=== PATIENT | female | born 1985 | race Caucasian/White ===

== ENCOUNTER 2016-09-17 14:16 | Emergency (ER) | payer MEDICAID ==
[~2016-09-17] VITALS: Ht 167.6 cm; Wt 104.3 kg
[~2016-09-17 14:16] MED LIST: BACTRIM DS 8001 TA1 PO; BACTRIM DS 8001 TAB PO; FLEXERIL10 MG PO; FLINTSTONES1 CTB PO; GABAPENTIN 600600 MG PO; HYDROCODONE1 TABLE1 PO; IBU800 M1 PO; MOTRIN 400MG.400 MG PO; PERCOCET 5/3251 EACH PO; PREDNISONE 20MG20 MG PO; XANAX 1MG TABLET1 MG PO; ZYRTEC10 M2 PO
[2016-09-17] MEDS ORDERED: EXPECTORANT200 MG PO (16:13)
--- NOTE | 2016-09-17 16:14 | Urgent Treatment Center Report ---
History of Present Issue Date/Time Seen by Provider 09/17/16 7101 Visit Reason Pt arrived:Walked Presenting Problem:COUGH, SORE THROAT, FEVER Location if Accident: Onset of symptoms date/time:/ or onset unknown for:MEDICAL HX UNKNOWN Have you (or family members/close friends) recently traveled outside the [place]? N If Yes, where/when: Have you had exposure to infectious disease within the past month? TB? Other? Specify: States that she has been coughing and it has made her throat sore and she thinks she may have had a fever ALLERGIES Coded Allergies: MDX - Erythromycin (ERYTHROMYCIN) (SEVERE ABD CRAMPS 04/23/14) Home Medications Reported Medications Ibuprofen (Ibu) 800 MG PO NEEDED Gabapentin (Gabapentin 600MG) 800 MG PO QID History Medical History General CAD? No Angina: No NC: No Hypertension? No Hyperlipidemia? No CHF? No DVT? No PE? No COPD? No Asthma? No Anemia? No GERD? No Gastric ulcers? No GI Bleed? No Hernia? No Thyroid Problems? No Hypothyroidism? No CVA? No Seizures? No Diabetes? No Renal Insuffiency? No UTI? No Stones? No BPH? No GB Disease: Yes Nephritic Syndrome? No Asplenia? No Hepatitis? No Sickle Cell Disease? No Arthritis? No Migraines? No Cataracts? No Glaucoma? No MRSA? No HIV? No TB? No Anxiety? No Depression? No Cancer? No More? 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 Family History Family HX Diabetes Yes CAD Yes Hypertension Yes Hyperlipidemia Yes Cancer Yes TB No Social History Smoking Hx Smoker: Current Every Day Smoker Tobacco: Yes Type Cigarettes Packs/day < 1 Pack Are you/the child exposed to second-hand smoke: Yes Alcohol Alcohol: No Review of Systems All Other Systems Reviewed and Negative Physical Exam Vital Signs Vital Signs Date Time Temp Pulse Resp B/P Pulse O2 O2 Flow FiO2 Ox Delivery Rate 09/17 1530 98.0 90 18 146/84 95 09/17 1525 98.0 90 18 146/84 95 General Appearance normal appearance, no apparent distress Ear, Nose, Throat throat mildly red, irritated Respiratory Status Yes: trachea midline, chest symmetrical, non tender chest. No: respiratory distress. Cardiovascular normal exam, no peripheral edema, no gallop, no JVD, no murmur Comment congested Neurologic alert Medical Decision Making LABS/Meds/Orders Pt receiving controlled substance in ED? No Results/Orders Laboratory Tests 09/17/16 1531: Group A Strep Screen NOT DETECTED Orders Procedure Date/time Status [facility] STREP SCREEN 09/17 1531 Complete Departure Departure Time of Disposition 1609 Disposition DC Home or Self Care(routine) Clinical Impression Primary Impression: Viral illness Condition STABLE Referrals CLARA KEARNS APRN (Family) Patient Instructions DI for Cough -- Adult Additional Instructions Drink plenty of fluids Warm salt water gargles for throat irritation Follow up family doctor Discharge Counseling Counseled pt/family regarding diagnosis, test results, medications/RX, home care Prescriptions Current Visit Scripts Guaifenesin (Expectorant) 200 MG PO Q4HP PRN congestion #24 TAB at 1618
--- NOTE | 2016-09-17 16:14 | Urgent Treatment Center Report ---
History of Present Issue Date/Time Seen by Provider 09/17/16 9930 Visit Reason Pt arrived:Walked Presenting Problem:COUGH, SORE THROAT, FEVER Location if Accident: Onset of symptoms date/time:/ or onset unknown for:MEDICAL HX UNKNOWN Have you (or family members/close friends) recently traveled outside the [place]? N If Yes, where/when: Have you had exposure to infectious disease within the past month? TB? Other? Specify: States that she has been coughing and it has made her throat sore and she thinks she may have had a fever ALLERGIES Coded Allergies: MDX - Erythromycin (ERYTHROMYCIN) (SEVERE ABD CRAMPS 04/23/14) Home Medications Reported Medications Ibuprofen (Ibu) 800 MG PO NEEDED Gabapentin (Gabapentin 600MG) 800 MG PO QID History Medical History General CAD? No Angina: No MS: No Hypertension? No Hyperlipidemia? No CHF? No DVT? No PE? No COPD? No Asthma? No Anemia? No GERD? No Gastric ulcers? No GI Bleed? No Hernia? No Thyroid Problems? No Hypothyroidism? No CVA? No Seizures? No Diabetes? No Renal Insuffiency? No UTI? No Stones? No BPH? No GB Disease: Yes Nephritic Syndrome? No Asplenia? No Hepatitis? No Sickle Cell Disease? No Arthritis? No Migraines? No Cataracts? No Glaucoma? No MRSA? No HIV? No TB? No Anxiety? No Depression? No Cancer? No More? 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 Family History Family HX Diabetes Yes CAD Yes Hypertension Yes Hyperlipidemia Yes Cancer Yes TB No Social History Smoking Hx Smoker: Current Every Day Smoker Tobacco: Yes Type Cigarettes Packs/day < 1 Pack Are you/the child exposed to second-hand smoke: Yes Alcohol Alcohol: No Review of Systems All Other Systems Reviewed and Negative Physical Exam Vital Signs Vital Signs Date Time Temp Pulse Resp B/P Pulse O2 O2 Flow FiO2 Ox Delivery Rate 09/17 1530 98.0 90 18 146/84 95 09/17 1525 98.0 90 18 146/84 95 General Appearance normal appearance, no apparent distress Ear, Nose, Throat throat mildly red, irritated Respiratory Status Yes: trachea midline, chest symmetrical, non tender chest. No: respiratory distress. Cardiovascular normal exam, no peripheral edema, no gallop, no JVD, no murmur Comment congested Neurologic alert Medical Decision Making LABS/Meds/Orders Pt receiving controlled substance in ED? No Results/Orders Laboratory Tests 09/17/16 1531: Group A Strep Screen NOT DETECTED Orders Procedure Date/time Status [facility] STREP SCREEN 09/17 1531 Complete Departure Departure Time of Disposition 1609 Disposition DC Home or Self Care(routine) Clinical Impression Primary Impression: Viral illness Condition STABLE Referrals CLARA KEARNS APRN (Family) Patient Instructions DI for Cough -- Adult Additional Instructions Drink plenty of fluids Warm salt water gargles for throat irritation Follow up family doctor Discharge Counseling Counseled pt/family regarding diagnosis, test results, medications/RX, home care Prescriptions Current Visit Scripts Guaifenesin (Expectorant) 200 MG PO Q4HP PRN congestion #24 TAB at 1612
[2016-09-17 16:38] VITALS: BP 146/84
== END 2016-09-17 16:38 | disposition home or self-care (01) ==
LOC: UTC 14:16
DX: B34.9 Viral infection, unspecified (principal)

== ENCOUNTER 2017-06-14 01:42 | Emergency (ER) | payer MEDICAID ==
[~2017-06-14] VITALS: Ht 167.6 cm; Wt 111.1 kg
[~2017-06-14 01:42] MED LIST changes: +EXPECTORANT200 MG PO
[2017-06-14] MEDS ORDERED: SUBOXONE 8 MG-21 FIL SL (01:59)
--- OUTSIDE RECORDS SUMMARY | 2017-06-14 02:03 | External Medical Summary Rpt | CCD ---
Demographics Preferred Language Lithuanian Marital Status Unknown Baptism Affiliation Unknown Race Unknown Ethnic Group Unknown Author Author , AMINAH BURR Address Unknown Phone Immunization Unable to retrieve immunization data due to connection failure with Immunization Registry. Please try again later.
--- OUTSIDE RECORDS SUMMARY | 2017-06-14 02:03 | External Medical Summary Rpt | CCD ---
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 DEPENDENCE, CIGARETTES, UNCOMPLICAT ED H57.12 OCULAR 11-05-2016 PAIN, LEFT EYE T15.12XA FOREIGN 11-05-2016 BODY IN CONJUNCTIVA L SAC, LEFT EYE, INITIAL ENCOUNTER Allergies, Adverse Reactions, Alerts Type Drug Allergy Adverse Reaction to Substance Substance Reaction Severity Erythromycin I-RASH Unknown Medications Na ND Rx Da Fi Fi Am Da Di Ph RX Ph St me C No te ll ll ou ys ag ar # ys at rm s nt no ma ic us Or Da si cy ia de te s n re d LA [address] 40 -2 AT 97 1- Lo ED 95 20 ng 30 13 er RI 9 NG Ac ER ti S ve IN JE CT IO N PI 11 10 0 No TO 11 -2 CI 11 1- Lo N 11 20 ng 30 13 13 er 3 UN Ac IT ti S/ ve LR 50 0M L IV MA 00 10 2 No PA 90 -2 P 41 1- Lo 32 98 20 ng 5 26 13 er MG 1 Ac TA ti BL ve ET Mo 00 10 0 No rp 40 -2 hi 91 1- Lo ne 25 20 ng 83 13 er 4M 0 G/ Ac Ml ti ve Sy ri ng e OX 00 10 0 No YC 40 -2 OD 60 1- Lo ON 55 20 ng E 26 13 er HC 2 L Ac 5 ti MG ve TA BL ET SI 63 10 2 No ME 73 -2 TH 90 1- Lo IC 22 20 ng ON 51 13 er E 0 80 Ac ti MG ve TA B CH EW AK 59 10 0 No SO 76 -2 MT 25 1- Lo OS 00 20 ng TO 80 13 er L 1 20 Ac 0 ti MC ve G TA BL ET KE 00 10 0 No TO 40 -2 RO 93 1- Lo LA 79 20 ng C 50 13 er 30 1 Ac MG ti /M ve L AL DI 59 10 2 No LA 01 -2 UD 10 1- Lo ID 45 20 ng 2 21 13 er 0 MG Ac ti TA ve BL ET NI 00 10 2 No CO 06 -2 TI 75 1- Lo NE 12 20 ng 61 13 er 21 4 Ac MG ti /2 ve 4H R PA TC H CE 60 10 0 No FA 50 -2 ZO 50 1- Lo LI 74 20 ng N 90 13 er 1 5 GM Ac ti ve AL SO 00 10 0 No DI 40 -2 UM 97 1- Lo 98 20 ng CH 43 13 er LO 7 RI Ac DE ti ve 0. 9% SO JACKY TI ON Vital Signs 05-25-2013 08:10 Name Value Interpretat Reference Comment ion Range Weight 220 [lb_av] Measured Weight 99.792 kg Measured Results Labs Lab Lab Date Result Refere Interp Status Commen Order Detail nces retati t Range on pH BldCo (05-25-2013 07:35) pH 10--2 7.40 7.35-7. complet BldCo 013 UNK 45 ed 07:35 URINALYSIS/COMPLETE (05-25-2013 07:30) URINE 05-25-2 YELLOW YELLOW complet COLOR 013 ed 07:30 URINE 05-25-2 CLEAR CLEAR complet APPEARA 013 ed NCE 07:30 URINE 05-25-2 NEGATIV NEG complet GLUCOSE 013 E ed - 07:30 DIPSTIC K URINE 05-25-2 NEGATIV NEG complet BILIRUB 013 E ed IN - 07:30 DIPSTIC K URINE 05-25-2 NEGATIV NEG complet KETONE 013 E mg/dL ed 07:30 URINE 05-25-2 Greater 1.005-1 complet SPECIFI 013 than .030 ed C 07:30 or GRAVITY equal to 1.030 URINE 05-25-2 NEGATIV NEG complet BLOOD 013 E ed 07:30 URINE 05-25-2 6.0 UNK 5.0-8.5 complet PH 013 ed 07:30 URINE 05-25-2 NEGATIV NEG complet PROTEIN 013 E mg/dL ed - 07:30 DIPSTIC K URINE 05-25-2 0.2 NEG complet UROBILI 013 E.U./dL ed NOGEN - 07:30 DIPSTIC K URINE 10-21-2 NEGATIV NEG complet NITRATE 013 E ed - 07:30 DIPSTIC K URINE 10-21-2 NEGATIV NEG complet LEUK 013 E ed ESTERAS 07:30 E URINE 10-21-2 3-5 0 complet RBC 013 rbc/hpf ed 07:30 URINE 10-21-2 3-5 O complet WBC 013 wbc/hpf ed 07:30 URINE 10-21-2 5-10 0-5 complet SQUAMOU 013 #/hpf ed S CELLS 07:30 CBC with AUTO DIFF (05-25-2013 05:50) WBC # 10-21-2 14.2 4.8-10. complet Bld 013 K/MM3 8 ed Auto 05:50 RBC # 10-21-2 3.82 4.2-5.4 complet Bld 013 M/mm3 ed Auto 05:50 Hgb 10-21-2 11.4 12.2-16 complet Bld-mCn 013 g/dL .2 ed c 05:50 Hct Fr 10-21-2 34.4 % 37.0-47 complet Bld 013 .0 ed 05:50 MCV RBC 10-21-2 90.1 fl 82.2-97 complet 013 .8 ed 05:50 MCH RBC 10-21-2 30.0 pg 27-31.2 complet Qn 013 ed Auto 05:50 MEAN 10-21-2 33.3 31.8-35 complet CORPUSC 013 g/dl .4 ed ULAR 05:50 HGB CONC RDW RBC 10-21-2 13.5 % 11.5-17 complet Auto 013 .5 ed 05:50 Platele 10-21-2 321 142-424 complet t Bld 013 K/mm3 ed Ql 05:50 Manual MEAN 10-21-2 7.8 fl 7.4-10. complet PLATELE 013 4 ed T 05:50 VOLUME Granulo 10-21-2 68.9 % 37.0-80 complet cytes 013 .0 ed Fr Bld 05:50 Auto LYMPH % 10-21-2 23.2 % 10-50.0 complet 013 ed 05:50 Monocyt 10-21-2 5.3 % 1.7-9.3 complet es Fr 013 ed Bld 05:50 Auto Eosinop 10-21-2 2.3 % 0.1-12. complet hil Fr 013 0 ed Bld 05:50 Auto Basophi 10-21-2 0.3 % 0.1-2.0 complet ls Fr 013 ed Bld 05:50 Auto Granulo 10-21-2 9.8 1.8-7.8 complet cytes # 013 K/mm3 ed Bld 05:50 Auto Lymphoc 10-21-2 3.3 0.7-4.5 complet ytes Fr 013 K/mm3 ed Bld 05:50 Auto Monocyt 10-21-2 0.8 0.1-1.0 complet es # 013 K/mm3 ed Bld 05:50 Auto Eosinop -21-2 0.3 0.0-0.4 complet hil # 013 K/mm3 ed Bld 05:50 Auto Basophi 10-21-2 0.0 0-0.2 complet ls # 013 K/MM3 ed Bld 05:50 Auto Encounters Encounter Start End Date Code Location Performer Type Date Inpatient IMP Young Hadley MD ([place]) 3 05:18 3 10:20 [facility]
--- OUTSIDE RECORDS SUMMARY | 2017-06-14 02:03 | External Medical Summary Rpt ---
Author Author AMINAH Velez, [employer] Organization [employer] Address Unknown Phone Unavailable
--- OUTSIDE RECORDS SUMMARY | 2017-06-14 02:03 | External Medical Summary Rpt | CCD ---
Author Author [employer] Organization [employer] Address Unknown Phone Unavailable Purpose Continuity of Care Document - through 2016
--- OUTSIDE RECORDS SUMMARY | 2017-06-14 02:03 | External Medical Summary Rpt | CCD ---
Author Author , AMINAH BURR Address Unknown Phone [email or web address] Support Name Relationship Address Phone EMMA, Next Of Kin [address] [place], [phone] [place] [address] Purpose Continuity of Care Document - 05-25-2013 [...] ti MG ve TA B CH EW ND 59 10 0 No SO 76 -2 [place] 25 1- Lo OS 00 20 ng [...] Hadley MD ([place]) 3 05:18 3 10:20 [facility]
--- OUTSIDE RECORDS SUMMARY | 2017-06-14 02:03 | External Medical Summary Rpt | CCD ---
Demographics Preferred Language Mongolian Marital Status Unknown Zoroastrianism Affiliation Unknown Race Unknown Ethnic Group Unknown Author Author , AMINAH BURR Address Unknown Phone Immunization Unable to retrieve immunization data due to connection failure with Immunization Registry. Please try again later.
--- NOTE | 2017-06-14 02:09 | Emergency Room Report ---
History of Present Illness Time Seen by MD Vicente Presenting Problem in Triage Pt arrived:Walked Presenting Problem:C/O LOWER ABD PAIN, REPORTS CRAMPY PAIN,STATES PINKISH DISCHARGED. REPORTS MULTIPLE EPISODE. 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 N Clinical Suspician of Infection? N Mental Status: 1 - Regular (Normal Baseline) Sepsis Risk:Low Sepsis Risk Have you (or family members/close friends) recently traveled outside the [place]? N If Yes, where/when: Have you had exposure to infectious disease within the past month? N TB? Other? Specify: Source patient, RN notes reviewed, family, old records Exam Limitations no limitations Comment pt with lower pelvic pain which has been going on for weeks who presents tonight for eval - she has hx of pso disease Cardiac Chest Pain Chest pain indicative of cardiac No Timing/Duration this evening Severity moderate ALLERGIES Coded Allergies: erythromycin base (From ERYTHROCIN) (Mild, NA-NAUSEA 06/14/17) Home Medications Reported Medications Ibuprofen (Ibu) 800 MG PO NEEDED BUPRENORPHINE HCL/NALOXONE HCL (Suboxone 8 MG-2 MG Sl Film) 1 mg SL BID Gabapentin (Gabapentin 600MG) 800 MG PO QID History Medical History General CAD? No Angina: No VA: No Hypertension? No Hyperlipidemia? No CHF? No DVT? No PE? No COPD? No Asthma? No Anemia? No GERD? No Gastric ulcers? No GI Bleed? No Hernia? No Thyroid Problems? No Hypothyroidism? No CVA? No Seizures? No Diabetes? No Renal Insuffiency? No End Stage Renal Disease? No UTI? No Stones? No BPH? No GB Disease: Yes Nephritic Syndrome? No Asplenia? No Hepatitis? No Sickle Cell Disease? No Arthritis? No Migraines? No Cataracts? No Glaucoma? No MRSA? No HIV? No TB? No Anxiety? No Depression? No Cancer? No More? 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 Respiratory denies cough, denies shortness of breath, denies wheezing Cardiovascular denies chest pain, denies syncope Gastrointestinal see HPI, abdominal pain, denies diarrhea, denies vomiting Genitourinary denies: dysuria, frequency, hesitancy, hematuria. Musculoskeletal denies back pain, denies joint pain, denies joint swelling, denies neck pain Skin denies rash Psychiatric/Neurological denies headache, denies seizure Physical Exam Vital Signs Vital Signs Date Time Temp Pulse Resp B/P Pulse O2 O2 Flow FiO2 Ox Delivery Rate 06/14 0312 75 18 114/76 98 06/14 0219 18 06/14 0145 98.6 81 18 162/94 96 - WBC >12,000 or <4,000 or 10% bands? 2 or more SIRS Criteria Met? B/P:114/76 MAP:116 Creatinine >2.0? UA output<0.5ml/kg/hr for 2 hrs? Platelet count >100,000? Lactate >2.0mmol/1? INR >1.2 or PTT > than 60 sec? Evidence of Organ Dysfunction? Provider documented clinical suspician of infection? N Sepsis Criteria Count: 0 Sepsis Risk: Low Sepsis Risk General Appearance no apparent distress Eye Exam - bilateral eye PERRL, bilateral eye EOMI Ear, Nose, Throat normal ENT inspection Neck supple Respiratory Status No: respiratory distress. 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 No Results/Orders Laboratory Tests 06/14/17 0210: Sodium 140, Potassium 4.2, Chloride 106, Carbon Dioxide 28, BUN 12, Creatinine 0.7, Estimated Creat Clear 208 H, Estimated GFR (MDRD) 99, Glucose 103, Calcium 8.9, Total Bilirubin 0.2, AST 17, ALT 28, Alkaline Phosphatase 65, Total Protein 6.9, Albumin 3.6, Globulin 3.3 H, Albumin/Globulin Ratio 1.1, Amylase 30, Lipase 64 L, WBC 10.9 H, RBC 4.37, Hgb 12.8, Hct 39.1, MCV 89.5, RDW 12.3, Plt Count 319, MPV 6.7 L, Gran % 54.1, Gran # 5.9, Lymphocytes % 32.6, Monocytes % 6.8, Eosinophils % 6.0, Basophils % 0.6, Lymphocytes # 3.6, Monocytes # 0.7, Eosinophils # 0.7 H, Basophils # 0.1, PUBS MCHC 32.8, MCH 29.3, Urine Color YELLOW, Urine Appearance CLEAR, Urine pH 6.5, Ur Specific [place] 1.020, Urine Protein NEGATIVE, Urine Ketones NEGATIVE, Urine Blood 1+ H, Urine Nitrate NEGATIVE, Urine Bilirubin NEGATIVE, Urine Urobilinogen 0.2, Ur Leukocyte Esterase NEGATIVE, Urine WBC 3-5, Ur Squamous Epith Cells 3-5, Amorphous Sediment 1+, Urine Bacteria 1+, Urine Mucus 1+, Urine Glucose NEGATIVE Current Medication Orders Sig/Velia Start time Last Medication Dose Route Stop Time Status Admin Ketorolac 0 .STK-MED ONE 06/14 218 DC Tromethamine .ROUTE Ondansetron HCl 0 .STK-MED ONE 06/14 217 DC .ROUTE Sodium Chloride 1,000 ML .STK-MED ONE 06/14 217 DC IV Ketorolac 30 MG ONCE ONE 06/14 215 DC 06/14 Tromethamine IV 06/14 216 021 Ondansetron HCl 4 MG ONCE ONE 06/14 215 DC 06/14 IV 06/14 216 0218 Sodium Chloride 10 ML PRN PRN 06/14 215 AC IV 06/15 020 Sodium Chloride 1,000 ML .Q1H1M 06/14 215 DC 06/14 IV 06/14 315 0219 Sodium Chloride 10 ML PRN PRN 06/14 215 AC IV 06/15 0203 Orders Procedure Date/time Status DIET-NOTHING BY MOUTH 06/[address] ABD & PELVIS W/O CONTRAST 06/[address] ABD/PELVIS REQ 06/14 203 Complete IV SALINE LOCK 06/14 203 Active LIPASE 06/14 203 Complete CBC WITH AUTO DIFF 06/14 203 Complete CHEM 12 PROFILE 06/14 203 Complete AMYLASE 06/14 203 Complete URINALYSIS/COMPLETE 06/14 145 Complete URINE 06/14 145 Complete XRAY/CT/US XRAY/CT/US CT abdomen, pelvis CT interpretation by discussed w/radiologist Time results known: 0320 CT Results normal/NAD Departure Departure Time of Disposition 0320 Disposition DC Home or Self Care(routine) Clinical Impression Primary Impression: Pelvic pain Condition STABLE Referrals CLARA KEARNS APRN (Family) Patient Instructions DI for Pelvic Pain Additional Instructions please see pcp for follow up and dr weber Discharge Counseling Counseled pt/family regarding diagnosis, test results, medications/RX, follow up needs ED Critical Care Critical Care No at 0326
[2017-06-14 02:22] LABS: URINE BILIRUBIN - DIPSTICK NEGATIVE (NEG); URINE BLOOD 1+ (NEG)
[2017-06-14 02:23] LABS: HEMOGLOBIN 12.8 g/dL (12.2-16.2); LYMPH # 3.6 K/mm3 (0.7-4.5); LYMPH % 32.6 % (10-50.0)
[2017-06-14 03:48] VITALS: BP 114/76
--- NOTE | 2017-06-14 06:06 | RADIOLOGY REPORT PS360 ---
CT ABD PELVIS W/O CONTRAST CLINICAL INDICATION: Localize lower abdominal pain ABD PAIN ORDERING PHYSICIAN: Letty White MD PATIENT AGE: 31 years COMPARISON: None TECHNIQUE: Axial images obtained with sagittal and coronal reformats. PROCEDURE: Oral Contrast: None IV Contrast: None . FINDINGS: Lower thorax: No acute finding ABDOMEN: Liver: There is hepatomegaly with the liver measuring 23 7-m cephalad to caudad and 26 cm transverse with diffuse fatty infiltration of the liver Gallbladder: Postcholecystectomy. No ductal dilatation Pancreas: No masses or peripancreatic fluid collections. Spleen: Unremarkable. Adrenals: Enlarged left adrenal gland measuring 2.9 x 2.1 cm with a density of 12 Hounsfield units. The right adrenal gland is unremarkable. Kidneys/ureters: No masses. No renal calculi. No hydronephrosis. No perinephric fluid collections. No ureteral dilatation or obvious ureteral calculi. Stomach bowel: Nondistended. No obvious mass or thickening. Appendix: No evidence of appendicitis. PELVIS: Reproductive: Bilateral tubal ligation clips are present. No mass apparent Bladder: Nondistended. No obvious stones or masses. ABDOMEN & PELVIS: Peritoneum: No abnormal fluid collections. No obvious inflammatory changes. No free air. Lymph nodes: Scattered small lymph nodes are present in the retroperitoneum nonspecific Vasculature: No evidence of abdominal aortic aneurysm. No retroperitoneal hemorrhage evident. Bones: No acute fracture IMPRESSION: 1. Hepatomegaly with diffuse fatty liver infiltration. 2. Enlarged left adrenal gland with indeterminate density. MRI without and with contrast with in and out of phase imaging may be of further value. 3. No acute finding apparent
== END 2017-06-14 03:52 | disposition home or self-care (01) ==
LOC: ER 01:42
PROVIDERS: Emergency Medicine
DX: R10.2 Pelvic and perineal pain (principal); F17.210 Nicotine dependence, cigarettes, uncomplicated
CPT/HCPCS: J0595; J2405

== ENCOUNTER 2017-06-21 21:38 | Emergency (ER) | payer MEDICAID ==
[~2017-06-21] VITALS: Ht 167.6 cm; Wt 108.9 kg
[~2017-06-21 21:38] MED LIST changes: +SUBOXONE 8 MG-21 FIL SL
[2017-06-21 21:43] VITALS: BP 151/93
--- OUTSIDE RECORDS SUMMARY | 2017-06-21 22:06 | External Medical Summary Rpt | CCD ---
Author Author , AMINAH BURR Address Unknown Phone [email or web address] Name Relationship Address Phone EMMA, Next Of Kin [address] [place], [phone] [place] [address] Purpose Continuity of Care Document - 05-25-2013 through 2016 Problems Code Diagnosis DOS Provider Status F17.210 NICOTINE 11-05-2016 DEPENDENCE, CIGARETTES, UNCOMPLICAT ED H57.12 OCULAR 11-05-2016 PAIN, LEFT EYE T15.12XA FOREIGN 11-05-2016 BODY IN CONJUNCTIVA L SAC, LEFT EYE, INITIAL ENCOUNTER R10.2 PELVIC AND PERINEAL PAIN Allergies, Adverse Reactions, Alerts Type Drug Allergy [...] ti MG ve TA B CH EW [place] 59 10 0 No SO 76 -2 ID 25 1- Lo OS 00 20 ng [...] Order Detail nces retati t Range on Urinalysis with microscopy (06-14-2017 02:10) Urine 3 - 5 O complet leukocy 017 wbc/hpf ed francisca 02:10 count (number /volume ) Urine 0.2 0.2 NEG complet urobili 017 L ed nogen 02:10 E.U./dL detecti on by test str [place] 3-5 3-5 0-5 complet s 017 L ed epithel 02:10 #/hpf ial cells detecti on in u Urine = 1.020 1.005-1 complet specifi 017 .030 ed c 02:10 gravity measure ment Urine = NEG complet protein 017 NEGATIV ed 02:10 E mg/dL measure ment by automat ed t Urine = 6.5 5.0-8.5 complet pH 017 ed 02:10 Urine NEGATIV NEG complet nitrite 017 E ed 02:10 NEGATIV detecti E L on by test strip Mucus 1+ 1+ L OCC complet detecti 017 ed on in 02:10 urine sedimen t by lig Mucus NEGATIV NEG complet detecti 017 E ed on in 02:10 NEGATIV urine E L sedimen t by lig Urine NEGATIV NEG complet ketones 017 E ed 02:10 NEGATIV detecti E L on by mg/dL automat ed francisca Glucose = NEG complet ur 017 NEGATIV ed test 02:10 E strip Urine YELLOW YELLOW complet color 017 YELLOW ed 02:10 L Urine 1+ 1+ L NEG complet blood 017 ed detecti 02:10 on Urine NEGATIV NEG complet total 017 E ed bilirub 02:10 NEGATIV in E L detecti on by test Bacteri 1+ 1+ L O complet a 017 ed detecti 02:10 on in urine sedimen t by Amorpho 1+ 1+ L NONE complet us 017 ed sedimen 02:10 t detecti on in urine se Urine CLEAR CLEAR complet appeara 017 CLEAR L ed nce 02:10 determi nation CBC w auto diff (06-14-2017 02:10) Automat = 12.3 11.5-17 complet ed 017 % .5 ed erythro 02:10 cyte distrib ution width Red = 4.37 4.2-5.4 complet blood 017 M/mm3 ed cell 02:10 count Blood = 319 142-424 complet platele 017 K/mm3 ed t count 02:10 Automat = 6.7 7.4-10. complet ed 017 fl 4 ed blood 02:10 platele t mean volume jean carlos [place] % = 6.8 % 1.7-9.3 complet 017 ed 02:10 Absolut = 0.7 0.1-1.0 complet e 017 K/mm3 ed monocyt 02:10 e count Automat = 89.5 82.2-97 complet ed 017 fl .8 ed erythro 02:10 cyte mean corpusc ular v Automat = 32.8 31.8-35 complet ed 017 g/dl .4 ed erythro 02:10 cyte mean corpusc ular h Mean = 29.3 27-31.2 complet corpusc 017 pg ed ular 02:10 hemoglo bin (MCH) determ Lymphoc = 32.6 10-50.0 complet yte 017 % ed count, 02:10 blood, automat ed Absolut = 3.6 0.7-4.5 complet e 017 K/mm3 ed lymphoc 02:10 yte count Blood = 12.8 12.2-16 complet hemoglo 017 g/dL .2 ed bin 02:10 measure ment (mass/v olum Blood = 39.1 37.0-47 complet hematoc 017 % .0 ed rit 02:10 (volume fractio n) Granulo = 54.1 37.0-80 complet cyte 017 % .0 ed percent 02:10 age Blood = 5.9 1.8-7.8 complet granulo 017 K/mm3 ed cytes 02:10 automat ed count (numb Automat = 6.0 % 0.1-12. complet ed 017 0 ed blood 02:10 eosinop hils/10 0 leukocy t Automat = 0.7 0.0-0.4 complet ed 017 K/mm3 ed blood 02:10 eosinop hil count Baso % = 0.6 % 0.1-2.0 complet 017 ed 02:10 Automat = 0.1 0-0.2 complet ed 017 K/MM3 ed blood 02:10 basophi l count (count/ vo Blood = 10.9 4.8-10. complet leukocy 017 K/MM3 8 ed francisca 02:10 count (number /volume ) Lipase measurement (06-14-2017 02:10) Lipase = 64 73-393 complet measure 017 U/L ed ment 02:10 Comprehensive metabolic panel (06-14-2017 02:10) Serum = 4.2 3.5-5.1 complet potassi 017 mmoL/L ed um 02:10 measure ment Serum = 103 74-106 complet or 017 mg/dL ed plasma 02:10 glucose measure ment (mas Protein = 6.9 6.4-8.2 complet total 017 gm/dL ed ser/aime 02:10 s ALT = 28 12-78 complet (SGPT) 017 U/L ed ser/aime 02:10 s Serum = 17 15-37 complet or 017 U/L ed plasma 02:10 asparta te aminotr ansfera Serum = 140 136-145 complet sodium 017 mmoL/L ed measure 02:10 ment Serum = 3.3 1.3-3.2 complet globuli 017 gm/dL ed n 02:10 measure ment (mass/v olume) Estimat = 99 59- complet ed 017 ML/MIN ed glomeru 02:10 lar filtrat ion rate (GF Comment: REFERENCE RANGE: >60 ML/MIN/1.73 SQUARE METERS Comment: If this patient is -Georgian, then multiply the Comment: result by 1.210. Estimat = 208 50-200 complet ion of 017 ML/MIN ed creatin 02:10 ine renal clearan ce Serum = 0.7 0.55-1. complet or 017 mg/dL 02 ed plasma 02:10 creatin ine measure ment ( Carbon = 28 21.0-32 complet dioxide 017 mmoL/L .0 ed 02:10 measure ment Serum = 106 98-107 complet or 017 mmoL/L ed plasma 02:10 chlorid e measure ment (mo Serum = 8.9 8.5-10. complet or 017 mg/dL 1 ed plasma 02:10 calcium measure ment (mas Serum = 12 7-18 complet or 017 mg/dL ed plasma 02:10 urea nitroge n measure men Serum = 0.2 0.2-1.0 complet or 017 mg/dL ed plasma 02:10 total bilirub in measure m Serum = 65 46-116 complet or 017 U/L ed plasma 02:10 alkalin e phospha tase jean carlos Serum = 3.6 3.4-5.0 complet or 017 gm/dL ed plasma 02:10 albumin measure ment (mas Serum = 1.1 1.1-1.8 complet or 017 ed plasma 02:10 albumin /globul in mass ra Amylase ser/plas (06-14-2017 02:10) Amylase 11-10-2 = 30 25-115 complet 017 U/L ed ser/aime 02:10 s Urine test (06-14-2017 02:10) Urine 06-14-2 = NEG complet pregnan 017 NEGATIV ed cy test 02:10 E Urinalysis dipstick W Reflex Microscopic panel in Urine (06-14-2017 02:10) Amorpho --2 1+ NONE complet us 017 ed sedimen 02:10 t [Presen ce] in Urine sedimen t by Light microsc opy Bacteri 06-14- 1+ O complet a 017 ed [Presen 02:10 ce] in Urine sedimen t by Light microsc opy Mucus 06-14-2 1+ OCC complet [Presen 017 ed ce] in 02:10 Urine sedimen t by Light microsc opy Epithel 3-5 0#/hp complet ial 017 f - ed cells.s 02:10 5#/hp quamous f [Presen ce] in Urine sedimen t by Microsc opy high power field Leukocy 06-14-2 3-5 O complet francisca 017 wbc/hpf ed [#/volu 02:10 me] in Urine Urinalysis dipstick W Reflex Microscopic panel in Urine (06-14-2017 02:10) Appeara 06-14-2 CLEAR CLEAR complet nce of 017 ed Urine 02:10 Bilirub 06-14-2 NEGATIV NEG complet in 017 E ed [Presen 02:10 ce] in Urine by Test strip Erythro 06-14-2 1+ NEG Abnorma complet cytes 017 l ed [Presen 02:10 ce] in Urine Color 06-14- YELLOW YELLOW complet of 017 ed Urine 02:10 Ketones --2 NEGATIV NEG complet 017 E ed [Presen 02:10 ce] in Urine by Automat ed test strip Mucus --2 NEGATIV NEG complet [Presen 017 E ed ce] in 02:10 Urine sedimen t by Light microsc opy Nitrite --2 NEGATIV NEG complet 017 E ed [Presen 02:10 ce] in Urine by Test strip Urobili 11-10-2 0.2 NEG complet nogen 017 ed [Presen 02:10 ce] in Urine by Test strip pH BldCo (05-25-2013 07:35) pH 10-21-2 7.40 7.35-7. complet BldCo 013 UNK 45 ed 07:35 URINALYSIS/COMPLETE (05-25-2013 07:30) URINE 10-21-2 YELLOW YELLOW complet COLOR 013 ed 07:30 URINE 10-21-2 CLEAR CLEAR complet APPEARA 013 ed NCE 07:30 URINE 10-21-2 NEGATIV NEG complet GLUCOSE 013 E ed - 07:30 DIPSTIC K URINE 10-21-2 NEGATIV NEG complet BILIRUB 013 E ed IN - 07:30 DIPSTIC K URINE 10-21-2 NEGATIV NEG complet KETONE 013 E mg/dL ed 07:30 URINE 10-21-2 Greater 1.005-1 complet SPECIFI 013 than .030 ed C 07:30 or GRAVITY equal to 1.030 URINE 10-21-2 NEGATIV NEG complet BLOOD 013 E ed 07:30 URINE 10-21-2 6.0 UNK 5.0-8.5 complet PH 013 ed 07:30 URINE 10-21-2 NEGATIV NEG complet PROTEIN 013 E mg/dL ed - 07:30 DIPSTIC K URINE 10-21-2 0.2 NEG complet UROBILI 013 E.U./dL ed [...] 013 K/mm3 ed Bld 05:50 Auto Eosinop 10-21-2 0.3 0.0-0.4 complet hil # 013 K/mm3 ed Bld 05:50 Auto Basophi 10-21-2 0.0 0-0.2 complet ls # 013 K/MM3 ed Bld 05:50 Auto Encounters Encounter Start End Date Code Location Performer Type Date Inpatient IMP Young Hadley MD ([place]) 3 05:18 3 10:20 [facility]
--- OUTSIDE RECORDS SUMMARY | 2017-06-21 22:06 | External Medical Summary Rpt | CCD ---
Author Author , AMINAH BURR Address Unknown Phone [email or web address] Support Name Relationship Address Phone EMMA, Next Of Kin [address] [place], [phone] [place] [address] Purpose Continuity of Care Document - 05-25-2013 [...] ti MG ve TA B CH EW [place] 59 10 0 No SO 76 -2 [place] 25 1- Lo OS 00 20 ng [...] 02:10 platele t mean volume jean carlos [place] % = 6.8 % 1.7-9.3 complet 017 [...] SQUARE METERS Comment: If this patient is -Jamaican, then multiply the Comment: result by 1.210. [...] Hadley MD ([place]) 3 05:18 3 10:20 [facility]
--- NOTE | 2017-06-21 22:07 | Emergency Room Report ---
History of Present Illness Time Seen by [id number] Presenting Problem in Triage Pt arrived:Walked Presenting Problem:PT C/O AREA IN BACK LEFT PART OF HER HEAD THAT IS VERY PAINFUL. STATES SHE CANT FEEL A KNOT IN THE BACK OF HER HEAD BUT NO INJURY. PT ALSO C/O NEASEA. 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 N Clinical Suspician of Infection? N Mental Status: 1 - Regular (Normal Baseline) Sepsis Risk:Low Sepsis Risk Have you (or family members/close friends) recently traveled outside the [place]? N If Yes, where/when: Have you had exposure to infectious disease within the past month? N TB? Other? Specify: Source patient, RN notes reviewed, family, old records Exam Limitations no limitations Comment atraumatic lt scalp pain which started today with no focal neuro sx and localized scalp pain- Cardiac Chest Pain Chest pain indicative of cardiac No Timing/Duration this evening Severity moderate ALLERGIES Coded Allergies: erythromycin base (From ERYTHROCIN) (Mild, NA-NAUSEA 06/14/17) Home Medications Reported Medications Ibuprofen (Ibu) 800 MG PO NEEDED BUPRENORPHINE HCL/NALOXONE HCL (Suboxone 8 MG-2 MG Sl Film) 1 mg SL BID Gabapentin (Gabapentin 600MG) 800 MG PO QID History Medical History General CAD? No Angina: No [place]: No Hypertension? No Hyperlipidemia? No CHF? No DVT? No PE? No COPD? No Asthma? No Anemia? No GERD? No Gastric ulcers? No GI Bleed? No Hernia? No Thyroid Problems? No Hypothyroidism? No CVA? No Seizures? No Diabetes? No Renal Insuffiency? No End Stage Renal Disease? No UTI? No Stones? No BPH? No GB Disease: Yes Nephritic Syndrome? No Asplenia? No Hepatitis? No Sickle Cell Disease? No Arthritis? No Migraines? No Cataracts? No Glaucoma? No MRSA? No HIV? No TB? No Anxiety? No Depression? No Cancer? No More? 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 Respiratory denies cough, denies shortness of breath, denies wheezing Cardiovascular denies chest pain, denies syncope Gastrointestinal denies abdominal pain, denies diarrhea, denies vomiting Genitourinary denies: dysuria, frequency, hesitancy, hematuria. Musculoskeletal denies back pain, denies joint pain, denies joint swelling, denies neck pain Skin see HPI, denies rash, other Psychiatric/Neurological see HPI, headache, denies seizure Physical Exam Vital Signs Vital Signs Date Time Temp Pulse Resp B/P Pulse O2 O2 Flow FiO2 Ox Delivery Rate 06/21 2143 98.5 86 20 151/93 96 - WBC >12,000 or <4,000 or 10% bands? 2 or more SIRS Criteria Met? B/P:151/93 MAP:112 Creatinine >2.0? UA output<0.5ml/kg/hr for 2 hrs? Platelet count >100,000? Lactate >2.0mmol/1? INR >1.2 or PTT > than 60 sec? Evidence of Organ Dysfunction? Provider documented clinical suspician of infection? N Sepsis Criteria Count: 1 Sepsis Risk: Low Sepsis Risk General Appearance no apparent distress Eye Exam - bilateral eye PERRL, bilateral eye EOMI Ear, Nose, Throat normal ENT inspection Neck supple Respiratory Status No: respiratory distress. 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 No Results/Orders Orders Procedure Date/time Status CT HEAD REQ 06/21 2154 Active Departure Departure Time of Disposition 2204 Disposition Against Medical Advice Clinical Impression Primary Impression: Headache Qualifiers: Headache type: unspecified Headache chronicity pattern: unspecified pattern Intractability: not intractable Qualified Code: R51 - Headache Condition STABLE Referrals CLARA KEARNS APRN (Family) Patient Instructions DI for Headache Additional Instructions pt left prior to ct scan ED Critical Care Critical Care No at 2206
--- NOTE | 2017-06-21 22:07 | Emergency Room Report ---
History of Present Illness Time Seen by [id number] Presenting Problem in Triage Pt arrived:Walked Presenting Problem:PT C/O AREA IN BACK LEFT PART OF HER HEAD THAT IS VERY PAINFUL. STATES SHE CANT FEEL A KNOT IN THE BACK OF HER HEAD BUT NO INJURY. PT ALSO C/O NEASEA. 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 N Clinical Suspician of Infection? N Mental Status: 1 - Regular (Normal Baseline) Sepsis Risk:Low Sepsis Risk Have you (or family members/close friends) recently traveled outside the [place]? N If Yes, where/when: Have you had exposure to infectious disease within the past month? N TB? Other? Specify: Source patient, RN notes reviewed, family, old records Exam Limitations no limitations Comment atraumatic lt scalp pain which started today with no focal neuro sx and localized scalp pain- Cardiac Chest Pain Chest pain indicative of cardiac No Timing/Duration this evening Severity moderate ALLERGIES Coded Allergies: erythromycin base (From ERYTHROCIN) (Mild, NA-NAUSEA 06/14/17) Home Medications Reported Medications Ibuprofen (Ibu) 800 MG PO NEEDED BUPRENORPHINE HCL/NALOXONE HCL (Suboxone 8 MG-2 MG Sl Film) 1 mg SL BID Gabapentin (Gabapentin 600MG) 800 MG PO QID History Medical History General CAD? No Angina: No [place]: No Hypertension? No Hyperlipidemia? No CHF? No DVT? No PE? No COPD? No Asthma? No Anemia? No GERD? No Gastric ulcers? No GI Bleed? No Hernia? No Thyroid Problems? No Hypothyroidism? No CVA? No Seizures? No Diabetes? No Renal Insuffiency? No End Stage Renal Disease? No UTI? No Stones? No BPH? No GB Disease: Yes Nephritic Syndrome? No Asplenia? No Hepatitis? No Sickle Cell Disease? No Arthritis? No Migraines? No Cataracts? No Glaucoma? No MRSA? No HIV? No TB? No Anxiety? No Depression? No Cancer? No More? 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 Respiratory denies cough, denies shortness of breath, denies wheezing Cardiovascular denies chest pain, denies syncope Gastrointestinal denies abdominal pain, denies diarrhea, denies vomiting Genitourinary denies: dysuria, frequency, hesitancy, hematuria. Musculoskeletal denies back pain, denies joint pain, denies joint swelling, denies neck pain Skin see HPI, denies rash, other Psychiatric/Neurological see HPI, headache, denies seizure Physical Exam Vital Signs Vital Signs Date Time Temp Pulse Resp B/P Pulse O2 O2 Flow FiO2 Ox Delivery Rate 06/21 2143 98.5 86 20 151/93 96 - WBC >12,000 or <4,000 or 10% bands? 2 or more SIRS Criteria Met? B/P:151/93 MAP:112 Creatinine >2.0? UA output<0.5ml/kg/hr for 2 hrs? Platelet count >100,000? Lactate >2.0mmol/1? INR >1.2 or PTT > than 60 sec? Evidence of Organ Dysfunction? Provider documented clinical suspician of infection? N Sepsis Criteria Count: 1 Sepsis Risk: Low Sepsis Risk General Appearance no apparent distress Eye Exam - bilateral eye PERRL, bilateral eye EOMI Ear, Nose, Throat normal ENT inspection Neck supple Respiratory Status No: respiratory distress. 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 No Results/Orders Orders Procedure Date/time Status CT HEAD REQ 06/21 2154 Active Departure Departure Time of Disposition 2204 Disposition Against Medical Advice Clinical Impression Primary Impression: Headache Qualifiers: Headache type: unspecified Headache chronicity pattern: unspecified pattern Intractability: not intractable Qualified Code: R51 - Headache Condition STABLE Referrals CLARA KEARNS APRN (Family) Patient Instructions DI for Headache Additional Instructions pt left prior to ct scan ED Critical Care Critical Care No at 2206
--- OUTSIDE RECORDS SUMMARY | 2017-06-21 22:07 | External Medical Summary Rpt | CCD ---
Demographics Preferred Language Panamanian Marital Status Unknown Gnosticist Affiliation Unknown Race Unknown Ethnic Group Unknown Author Author , AMINAH BURR Address Unknown Phone Immunization No patient found.
--- OUTSIDE RECORDS SUMMARY | 2017-06-21 22:07 | External Medical Summary Rpt | CCD ---
Demographics Preferred Language Belgian Marital Status Unknown Spiritism Affiliation Unknown Race Unknown Ethnic Group Unknown Author Author , AMINAH BURR Address Unknown Phone Immunization No patient found.
--- OUTSIDE RECORDS SUMMARY | 2017-06-21 22:07 | External Medical Summary Rpt ---
Author Author AMINAH Velez, [employer] Organization [employer] Address Unknown Phone Unavailable Results Urinalysis dipstick W Reflex Microscopic panel in Urine Observa Value Referen Units Interpr Notes Date tion ce etation Range Appeara CLEAR CLEAR No No No Jun 14 nce of informa informa informa 2017 Urine tion in tion in tion in 2:10 AM source source source data data data Amorpho 1+ NONE No No No Jun 14 us informa informa informa 2017 sedimen tion in tion in tion in 2:10 AM t source source source [Presen data data data ce] in Urine sedimen t by Light microsc opy Bacteri 1+ O No No No Jun 14 a informa informa informa 2017 [Presen tion in tion in tion in 2:10 AM ce] in source source source Urine data data data sedimen t by Light microsc opy Bilirub NEGATIV NEG No No No Jun 14 in E informa informa informa 2017 [Presen tion in tion in tion in 2:10 AM ce] in source source source Urine data data data by Test strip Erythro 1+ NEG No Abnorma No Jun 14 cytes informa l informa 2016 [Presen tion in tion in 2:10 AM ce] in source source Urine data data Color YELLOW YELLOW No No No Jun 14 of informa informa informa 2017 Urine tion in tion in tion in 2:10 AM source source source data data data Glucose NEG No No No Jun 14 [Mass/vol informati informati informati 2017 2:10 ume] in on in on in on in AM Urine by source source source Test data data data strip Ketones NEGATIV NEG mg/dL No No Jun 14 E informa informa 2017 [Presen tion in tion in 2:10 AM ce] in source source Urine data data by Automat ed test strip Mucus NEGATIV NEG No No No Jun 14 [Presen E informa informa informa 2016 ce] in tion in tion in tion in 2:10 AM Urine source source source sedimen data data data t by Light microsc opy Mucus 1+ OCC No No No Jun 14 [Presen informa informa informa 2016 ce] in tion in tion in tion in 2:10 AM Urine source source source sedimen data data data t by Light microsc opy Nitrite NEGATIV NEG No No No Jun 14 E informa informa informa 2016 [Presen tion in tion in tion in 2:10 AM ce] in source source source Urine data data data by Test strip pH of 5.0 - 8.5 No Normal No Jun 14 Urine informati informati 2016 2:10 on in on in AM source source data data Protein NEG mg/dL No No Jun 14 [Mass/vol informati informati 2016 2:10 ume] in on in on in AM Urine by source source Automated data data test strip Specific 1.005 - No Normal No Jun 14 gravity 1.030 informati informati 2016 2:10 of Urine on in on in AM source source data data Epithel 3-5 0 - 5 #/hpf No No Jun 14 ial informa informa 2017 cells.s tion in tion in 2:10 AM quamous source source data data [Presen ce] in Urine sedimen t by Microsc opy high power field Urobili 0.2 NEG E.U./dL No No Jun 14 nogen informa informa 2016 [Presen tion in tion in 2:10 AM ce] in source source Urine data data by Test strip Leukocy [3 O wbc/hpf No No Jun 14 francisca wbc/hpf informa informa 2016 [#/volu ; 5 tion in tion in 2:10 AM me] in wbc/hpf source source Urine ] data data Amylase [Enzymatic activity/volume] in Serum or Plasma Observa Value Referen Units Interpr Notes Date tion ce etation Range Amylase 25 - 115 U/L Normal No Jun 14 [Enzymati informati 2016 2:10 c on in AM activity/ source volume] data in Serum or Plasma Comprehensive metabolic 2000 panel in Serum or Plasma Observa Value Referen Units Interpr Notes Date tion ce etation Range Albumin/G 1.1 - 1.8 No Normal No Jun 14 lobulin informati informati 2016 2:10 [Mass on in on in AM ratio] in source source Serum or data data Plasma Albumin 3.4 - 5.0 gm/dL Normal No Jun 14 [Mass/vol informati 2016 2:10 ume] in on in AM Serum or source Plasma data Alkaline 46 - 116 U/L Normal No Jun 14 phosphata informati 2016 2:10 se on in AM [Enzymati source c data activity/ volume] in Serum or Plasma Bilirubin 0.2 - 1.0 mg/dL Normal No Jun 14 .total informati 2016 2:10 [Mass/vol on in AM ume] in source Serum or data Plasma Urea 7 - 18 mg/dL Normal No Jun 14 nitrogen informati 2016 2:10 [Mass/vol on in AM ume] in source Serum or data Plasma Calcium 8.5 - mg/dL Normal No Jun 14 [Mass/vol 10.1 informati 2016 2:10 ume] in on in AM Serum or source Plasma data Chloride 98 - 107 mmoL/L Normal No Jun 14 [Moles/vo informati 2016 2:10 lume] in on in AM Serum or source Plasma data Carbon 21.0 - mmoL/L Normal No Jun 14 dioxide, 32.0 informati 2017 2:10 total on in AM [Moles/vo source lume] in data Serum or Plasma Creatinin 0.55 - mg/dL Normal No Jun 14 e 1.02 informati 2016 2:10 [Mass/vol on in AM ume] in source Serum or data Plasma Creatinin 50 - 200 ML/MIN High No Jun 14 e renal informati 2016 2:10 clearance on in AM source predicted data by Cockcroft -Gault formula Estimated 59- ML/MIN No REFERENCE Jun 14 informati RANGE: 2017 2:10 glomerula on in >60 AM r source ML/MIN/1. filtratio data 73 SQUARE n rate METERSIf (GF this patient is -A merican, then multiply theresult by 1.210. Globulin 1.3 - 3.2 gm/dL High No Jun 14 [Mass/vol informati 2016 2:10 ume] in on in AM Serum source data Glucose 74 - 106 mg/dL Normal No Jun 14 [Mass/vol informati 2016 2:10 ume] in on in AM Serum or source Plasma data Potassium 3.5 - 5.1 mmoL/L Normal Jun 142016 2:10 [Moles/vo on in AM lume] in source Serum or data Plasma Sodium 136 - 145 mmoL/L Normal Jun 14 [Moles/vo 2016 2:10 lume] in on in AM Serum or source Plasma data Aspartate 15 - 37 U/L Normal Jun 142016 2:10 aminotran on in AM sferase source [Enzymati data c activity/ volume] in Serum or Plasma Alanine 12 - 78 U/L Normal Jun 14 aminotran 2016 2:10 sferase on in AM [Enzymati source c data activity/ volume] in Serum or Plasma Protein 6.4 - 8.2 gm/dL Normal Jun 14 [Mass/vol 2016 2:10 ume] in on in AM Serum or source Plasma data Lipase [Enzymatic activity/volume] in Serum or Plasma Observa Value Referen Units Interpr Notes Date tion ce etation Range Lipase 73 - 393 U/L Low Jun 14 [Enzymati 2016 2:10 c on in AM activity/ source volume] data in Serum or Plasma CBC W Auto Differential panel in Blood Observa Value Referen Units Interpr Notes Date tion ce etation Range Basophils 0 - 0.2 K/MM3 Normal Jun 142016 2:10 [#/volume on in AM ] in source Blood by data Automated count Basophils 0.1 - 2.0 % Normal Jun 142016 2:10 leukocyte on in AM s in source Blood by data Automated count Eosinophi 0.0 - 0.4 K/mm3 High Jun 14 ls 2016 2:10 [#/volume on in AM ] in source Blood by data Automated count Eosinophi 0.1 - % Normal Jun 14 ls/100 12.0 2016 2:10 leukocyte on in AM s in source Blood by data Automated count Granulocy 1.8 - 7.8 K/mm3 Normal Jun 14 francisca 2016 2:10 [#/volume on in AM ] in source Blood by data Automated count Granulocy 37.0 - % Normal Jun 14 francisca/100 80.0 2016 2:10 leukocyte on in AM s in source Blood by data Automated count Hematocri 37.0 - % Normal Jun 14 t [Volume 47.0 informati 2016 2:10 on in AM Fraction] source of Blood data Hemoglobi 12.2 - g/dL Normal No Jun 14 n 16.2 informati 2016 2:10 [Mass/vol on in AM ume] in source Blood data Lymphocyt 0.7 - 4.5 K/mm3 Normal No Jun 14 es informati 2016 2:10 [#/volume on in AM ] in source Unspecifi data ed specimen by Automated count Lymphocyt 10 - 50.0 % Normal No Jun 14 es informati 2016 2:10 [#/volume on in AM ] in source Unspecifi data ed specimen by Automated count Erythrocy 27 - 31.2 pg Normal No Jun 14 te mean informati 2016 2:10 corpuscul on in AM ar source hemoglobi data n [Entitic mass] Erythrocy 31.8 - g/dl Normal No Jun 14 te mean 35.4 informati 2016 2:10 corpuscul on in AM ar source hemoglobi data n concentra tion [Mass/vol ume] by Automated count Erythrocy 82.2 - fl Normal No Jun 14 te mean 97.8 informati 2016 2:10 corpuscul on in AM ar volume source [Entitic data volume] by Automated count Monocytes 0.1 - 1.0 K/mm3 Normal No Jun 14 informati 2016 2:10 [#/volume on in AM ] in source Blood by data Automated count Monocytes 1.7 - 9.3 % Normal No Jun 10 informati 2016 2:10 leukocyte on in AM s in source Blood by data Automated count Platelet 7.4 - fl Low No Jun 14 mean 10.4 informati 2016 2:10 volume on in AM [Entitic source volume] data in Blood by Automated count Platelets 142 - 424 K/mm3 Normal No Jun 14 informati 2016 2:10 [#/volume on in AM ] in source Blood data Erythrocy 4.2 - 5.4 M/mm3 Normal No Jun 14 francisca informati 2017 2:10 [#/volume on in AM ] in source Amniotic data fluid Erythrocy 11.5 - % Normal No Jun 14 te 17.5 informati 2016 2:10 distribut on in AM ion width source [Entitic data volume] by Automated count Leukocyte 4.8 - K/MM3 High No Jun 14 s 10.8 informati 2016 2:10 [#/volume on in AM ] in source Blood data Choriogonadotropin.beta subunit [Units] in 24 hour Urine Observa Value Referen Units Interpr Notes Date tion ce etation Range Choriogon NEG No No No Jun 14 adotropin informati informati informati 2016 2:10 .beta on in on in on in AM subunit source source source [Units] data data data in 24 hour Urine Urinalysis dipstick W Reflex Microscopic panel in Urine Observa Value Referen Units Interpr Notes Date tion ce etation Range Appeara CLEAR CLEAR No No No Jun 14 nce of informa informa informa 2017 Urine tion in tion in tion in 2:10 AM source source source data data data Bilirub NEGATIV NEG No No No Jun 14 in E informa informa informa 2016 [Presen tion in tion in tion in 2:10 AM ce] in source source source Urine data data data by Test strip Erythro 1+ NEG No Abnorma No Jun 14 cytes informa l informa 2016 [Presen tion in tion in 2:10 AM ce] in source source Urine data data Color YELLOW YELLOW No No No Jun 14 of informa informa informa 2016 Urine tion in tion in tion in 2:10 AM source source source data data data Glucose NEG No No No Jun 14 [Mass/vol informati informati informati 2016 2:10 ume] in on in on in on in AM Urine by source source source Test data data data strip Ketones NEGATIV NEG mg/dL No No Jun 14 E informa informa 2016 [Presen tion in tion in 2:10 AM ce] in source source Urine data data by Automat ed test strip Mucus NEGATIV NEG No No No Jun 14 [Presen E informa informa informa 2016 ce] in tion in tion in tion in 2:10 AM Urine source source source sedimen data data data t by Light microsc opy Nitrite NEGATIV NEG No No No Jun 14 E informa informa informa 2016 [Presen tion in tion in tion in 2:10 AM ce] in source source source Urine data data data by Test strip pH of 5.0 - 8.5 No Normal No Nov Urine informati informati 2017 2:10 on in on in AM source source data data Protein NEG mg/dL No No Jun 14 [Mass/vol informati informati 2017 2:10 ume] in on in on in AM Urine by source source Automated data data test strip Specific 1.005 - No Normal No Jun 14 gravity 1.030 informati informati 2017 2:10 of Urine on in on in AM source source data data Urobili 0.2 NEG E.U./dL No No Jun 14 nogen informa informa 2017 [Presen tion in tion in 2:10 AM ce] in source source Urine data data by Test strip
== END 2017-06-21 22:11 | disposition left against medical advice (07) ==
LOC: ER 21:38
DX: R51 Headache (principal); F17.210 Nicotine dependence, cigarettes, uncomplicated